=== PATIENT | male | born 1960 | race Caucasian/White ===

== ENCOUNTER 2021-02-12 16:14 | Emergency (ER) | payer MEDICAID, SELFPAY ==
[2021-02-12 16:16] VITALS: BP 113/81; PULSE 109; RESP 18; TEMP 36.9; O2SAT 91; BMI 28.0
--- NOTE | 2021-02-12 16:43 | W.ED.SEIZURE ---
HPI - Seizure General: Chief Complaint: Seizure Stated Complaint: SEIZURES Time Seen by Provider: 02/12/21 16:22 History of Present Illness: HPI Narrative: 52-year-old male presents emergency room with complaint of seizure. He has a known history of seizure disorder is very agitated at the scene we reviewed his medicines he supposed be on valproic acid but has not taken overall he is also using gabapentin is on HIV medication is difficult time giving a slight history still very much postictal. Does not recall any trauma denies use alcohol he has had seizures in the past so this is not entirely new. complaint: seizure Onset (ago): hour(s) Description of Episode: post-event confusion Witnessed: Yes - by Bystander Trauma: No Seizure History: Yes Place: Outdoors Possible Precipitating Event: medication Associated symptoms: Reports confusion; Deny chest pain, chills, cough, diaphoresis, fever(s), anorexia, malaise, rash, short of breath, syncope or weakness Treatments prior to arrival: none Review of Systems Const: Denies: fever(s), chills, malaise or diaphoresis ENMT: Denies: throat pain, ear or mastoid pain, nasal discharge or nasal congestion Card: Denies: chest pain or syncope Resp: Denies: dyspnea, productive cough or non-productive cough GI: Denies: abdominal pain, nausea, vomiting, hematemesis, coffee ground emesis, diarrhea, constipation, bloating, hematochezia or melena : Denies: flank pain, dysuria, urinary frequency or urinary urgency Skin/Breast: Denies: rash or pruritus Neuro: Reports: confusion Physical Exam Const: COMMON NORMALS: no acute distress GENERAL APPEARANCE: cooperative and comfortable HENMT: COMMON NORMALS: normocephalic, atraumatic, hearing grossly normal bilaterally and external ears normal HEAD & SCALP: normocephalic and atraumatic EXTERNAL EAR: Yes external ears normal Eye: COMMON NORMALS: Equal, round and reactive pupils present, EOMs intact bilaterally, conjunctivae normal and no scleral icterus CONJUNCTIVA: Yes conjunctivae normal PUPIL: Yes Equal, round and reactive pupils present Neck/C-Spine: COMMON NORMALS: full ROM, no lymphadenopathy, supple and no JVD Lymph: LYMPHATIC: no lymphadenopathy noted and no lymphedema noted Resp: COMMON NORMALS: normal respiratory effort, No retractions, No use of accessory muscles and clear to auscultation bilaterally AUSCULTATION: clear to auscultation bilaterally Cardio: COMMON NORMALS: no JVD, regular rate, regular rhythm and No murmurs present (Cardio) RATE: regular rate RHYTHM: regular rhythm GI: COMMON NORMALS: Soft to palpation and No hepatosplenomegaly present AUSCULTATION: Yes normoactive bowel sounds PALPATION: Yes Soft to palpation, No Tenderness to palpation present (GI), No Guarding due to palpation present (GI) and Yes No hepatosplenomegaly present Extremity: COMMON NORMALS: normal to inspection, capillary refill normal, no clubbing, cyanosis or edema, no calf tenderness and no pedal edema Skin: COMMON NORMALS: no rashes or lesions noted GENERAL SKIN EXAM: no rashes or lesions noted Course Vital Signs: Vital signs: Vital Signs Temperature 98.4 F 02/12/21 16:16 Pulse Rate 88 02/12/21 18:22 Respiratory Rate 14 02/12/21 18:22 Blood Pressure 100/58 02/12/21 18:22 Pulse Oximetry 93 02/12/21 18:22 MDM - Seizure MDM Narrative: Medical decision making narrative: And postictal on arrival. Were going to go ahead and discharge him given Ativan only initially arrived he is a little bit sedate yet. He prefers to go home. Plan follow-up with Dr. Stark. Increase his valproic acid. Lab Data: Labs: Lab Results 02/12/21 02/12/21 Range/Units 17:18 17:18 WBC 14.3 H (4.0-10.0) 10^3/ uL RBC 4.88 (4.1-5.3) 10^6/u L Hgb 14.7 (11.7-16.6) g/dL Hct 43.5 (42.0-52.0) % MCV 89.1 (80-94) fL MCH 30.1 (28.0-34.0) pg MCHC 33.8 (30.0-36.0) g/dL RDW 12.8 (12.1-15.1) % Plt Count 300 (130-400) 10^3/c mm MPV 11.3 H (7.4-10.4) fL Neut % (Auto) 87.9 % Lymph % (Auto) 5.2 % [place] % (Auto) 6.0 % Eos % (Auto) 0.1 % Baso % (Auto) 0.4 % Neut # (Auto) 12.56 H (1.8-7.7) 10^3/u L Lymph # (Auto) 0.7 L (0.8-4.8) 10^3/u L [place] # (Auto) 0.9 (0.2-0.9) 10^3/u L Eos # (Auto) 0.0 (0.0-0.8) 10^3/u L Baso # (Auto) 0.1 (0.0-0.1) 10^3/u L Nucleated RBC % (a uto) 0 % Nucleated RBCs # 0.0 /100WBC Sodium 134 L (136-145) mmol/L Potassium 4.0 (3.5-5.1) mmol/L Chloride 100 (98-107) mmol/L Carbon Dioxide 23 (22-29) mmol/L Anion Gap 15.0 (5-19) BUN 12 (6-20) mg/dL Creatinine 1.1 (0.7-1.2) mg/dL GFR Calculation 68.8 L (90-130) mL/min Glucose 117 H (65-115) mg/dL Calculated Osmolal ity 279 L (285-295) mOsm/k g Calcium 8.8 (8.5-10.5) mg/dL Magnesium 2.5 H (1.7-2.3) mg/dL Total Bilirubin 0.5 (0.15-1.2) mg/dL AST 19 (0-40) U/L ALT 12 (0-41) U/L Alkaline Phosphata se 74 (40-130) IU/L Total Protein 7.2 (6.6-8.7) g/dL Albumin 3.6 (3.5-5.2) g/dL Globulin 3.6 (1.3-4.6) g/dL Valproic Acid 27.6 L (50-100) ug/mL Discharge Plan Discharge Patient Disposition: Home Clinical Impression: Epileptic seizure Condition: Stable Prescriptions: No Action divalproex 500 mg tablet extended release 24 hr 500 mg PO BID RF: 0 gabapentin 300 mg capsule 900 mg PO TID RF: 0 pravastatin 20 mg tablet 20 mg PO DAILY RF: 0 ProAir HFA 90 mcg/actuation HFA aerosol inhaler 2 puff INHALATION Q6H PRN (Reason: Shortness Of Breath) RF: 0 bupropion HCl 150 mg tablet extended release 24 hr 150 mg PO DAILY RF: 0 duloxetine 60 mg capsule,delayed release(DR/EC) 60 mg PO DAILY RF: 0 Triumeq 600-50-300 mg tablet 1 tab PO DAILY RF: 0 Discharge Orders: Discharge ED (Routine); Ordered 02/12/21 Ordered By: David Schmid Discharge Diet: Usual diet Discharge Activity: Resume usual activity Patient Instructions: Epilepsy (ED) Coding Level of Care Code ED Director [employer] for Rubina Fwd Exam Comprehensive
--- NOTE | 2021-02-12 16:44 | CTR_ITS ---
PROCEDURE INFORMATION: Exam: CT Head Without Contrast Exam date and time: 02/12/2021 4:47 PM Age: 60 years old Clinical indication: Condition or disease; Convulsions or seizures; Additional info: Hivseizure TECHNIQUE: Imaging protocol: Computed tomography of the head without contrast. Radiation optimization: All CT scans at this facility use at least one of these dose optimization techniques: automated exposure control; mA and/or kV adjustment per patient size (includes targeted exams where dose is matched to clinical indication); or iterative reconstruction. COMPARISON: CT head wo con* [id number] 09/29/2014 3:02 AM RADIATION DOSE METRICS: Total DLP (mGy-cm): 1271.62 FINDINGS: Limitations: Study is moderately limited by patient motion. Brain: Normal. No hemorrhage. Unremarkable white matter. No mass effect. Cerebral ventricles: No ventriculomegaly. Paranasal sinuses: Visualized sinuses are unremarkable. No fluid levels. Mastoid air cells: Visualized mastoid air cells are well aerated. Bones/joints: Unremarkable. No acute fracture. Soft tissues: Unremarkable. CT/CT head wo con* [id number] IMPRESSION: Limited exam. No gross acute intracranial finding. Radiation Dose CTDIVOL = (mGy): DLP = 1271.62 (mGy-cm)
[2021-02-12 17:24] LABS: Basophils # 0.1 10^3/uL (0.0-0.1); Basophils % 0.4 %; Eosinophils % 0.1 %; Hematocrit 43.5 % (42.0-52.0); Hemoglobin 14.7 g/dL (11.7-16.6); Lymphocytes # 0.7 10^3/uL (0.8-4.8); Lymphocytes % 5.2 %; Mean Corpuscular HGB Conc 33.8 g/dL (30.0-36.0); Mean Corpuscular Hemoglobin 30.1 pg (28.0-34.0); Mean Corpuscular Volume 89.1 fL (80-94); Mean Platelet Volume 11.3 fL (7.4-10.4); Monocytes # 0.9 10^3/uL (0.2-0.9); Neutrophils # 12.56 10^3/uL (1.8-7.7); Neutrophils % 87.9 %; Nucleated Red Blood Cells % 0 %; Platelet Count 300 10^3/cmm (130-400); Red Blood Count 4.88 10^6/uL (4.1-5.3); Red Cell Distribution Width 12.8 % (12.1-15.1); White Blood Count 14.3 10^3/uL (4.0-10.0)
[2021-02-12] MEDS: sodium chloride 0.9% 1,000 ML 999 ML IV (17:25)
[2021-02-12] MEDS: LORazepam 2 mg/mL INJ 1 mL 1 MG IVP (17:26)
[2021-02-12 17:43] LABS: Alanine Aminotransferase 12 U/L (0-41); Albumin Level 3.6 g/dL (3.5-5.2); Alkaline Phosphatase 74 IU/L (40-130); Aspartate Amino Transferase 19 U/L (0-40); Blood Urea Nitrogen 12 mg/dL (6-20); Calcium 8.8 mg/dL (8.5-10.5); Carbon Dioxide 23 mmol/L (22-29); Chloride 100 mmol/L (98-107); Globulin 3.6 g/dL (1.3-4.6); Glomerular Filtration Rate 68.8 mL/min (90-130); Glucose 117 mg/dL (65-115); Magnesium 2.5 mg/dL (1.7-2.3); Osmolality Calculated 279 mOsm/kg (285-295); Sodium 134 mmol/L (136-145); Total Bilirubin 0.5 mg/dL (0.15-1.2); Total Protein 7.2 g/dL (6.6-8.7)
[2021-02-12 18:22] VITALS: BP 100/58; PULSE 88; RESP 14; O2SAT 93
[2021-02-12 20:30] LABS: Valproic Acid Level 27.6 ug/mL (50-100)
--- NOTE | 2021-02-13 09:35 | DCPLANNER ---
java development manager had message to schedule a follow up appointment for patient with Dr. Stark for seizures. java development manager emailed patients information to Shyanne at Dr. Anderson office. Patients information will be printed and reviewed. Clinic will call patient with appointment information.
--- NOTE | 2021-02-18 07:54 | DCPLANNER ---
Patient has a follow up appointment scheduled for Thursday, March 06, 2021 at 3:30 with Ricco at neurology. Clinic will call patient with appointment information.
--- NOTE | 2021-03-13 07:29 | DCPLANNER ---
Patient had a follow up appointment scheduled for 03.06.[address] Anderson office - appointment is rescheduled for a later date.
== END 2021-02-12 18:23 | disposition home or self-care (01) ==
PROVIDERS: Emergency Provider Family Medicine
DX: G40.909 Epilepsy, unspecified, not intractable, without status epilepticus (principal)
CPT/HCPCS: 70450; 80053; 80164; 83735; 85025; 96361; 96374; 99283; J2060; J7030

== ENCOUNTER 2021-04-16 20:04 | Emergency (ER) | payer MEDICAID, SELFPAY ==
[2021-04-16 20:10] VITALS: BP 112/71; PULSE 105; RESP 24; TEMP 36.4; O2SAT 95; BMI 27.5
--- NOTE | 2021-04-16 20:17 | ED_ITS ---
HPI - Seizure General: Chief Complaint: Seizure Stated Complaint: SEIZURE Time Seen by Provider: 04/16/21 20:09 History of Present Illness: HPI Narrative: Mr. Rodriguez is a 60 year old gentleman with significant past medical history of epilepsy and HIV who presents to the [facility] do too seizure activity appeared reportedly he had two witnessed tonic clonic seizures without trauma today. He does not typically have a aura associated with these events. History is somewhat limited by patient appearing to be still postictal. The frequency of seizures is largely unchanged for him. He denies specific provoking factors. he currently reports moderate to severe intensity generalized fatigue which is common after seizures for him. The onset of these symptoms was acutely after his seizure. He has otherwise been at his baseline health. He reports compliance with his medications. He further reports compliance with his HIV regimin and denies any focal neurologic symptoms, fevers, neck stiffness, Headaches, or confusion outside the postictal. Seizure History: Yes (recent stressors, takes VPA.) Review of Systems General: Reports: 10 or more systems reviewed and unremarkable except in HPI and below Narrative: CONSTITUTIONAL: denies fever, weakness. See HPI EYES - denies pain, denies loss of vision EARS - denies ear issues. NOSE - denies congestion or rhinorrhea. THROAT - denies sore throat or difficulty swallowing. CARDIOVASCULAR - denies chest pain and palpitations RESPIRATORY - denies shortness of breath and cough GASTROINTESTINAL - denies abdominal pain, no nausea vomiting, no changes in bowel habits GENITOURINARY - denies dysuria or urinary frequency MUSCULOSKELETAL- denies deformity or pain SKIN - denies rashes or new changed skin lesions NEUROLOGIC - denies focal weakness or sensory changes. See HPI HEMATOLOGIC/LYMPHATIC - denies easy bruising or lymphadenopathy. PFS ED PFSH: Medical History Intractable seizure disorder Physical Exam Narrative: EXAM NARRATIVE: GENERAL/CONSTITUTIONAL - well-appearing. No acute distress. Mildly confused. Hard of hearing. Eyes - PERRL, no conjunctival injection ENMT - Atraumatic external nose and ears. Moist mucous membranes NECK - supple. trachea midline CARDIOVASCULAR - regular rate and rhythm. Peripheral pulses 2+ and equal RESPIRATORY -clear to auscultation bilaterally. No retractions or accessory muscle use. ABDOMEN/GI - Nontender/Nondistended. No tenderness to percussion or evidence of peritonitis MSK - Extremities without obvious deformity or tenderness to palpation SKIN - Warm, Dry NEURO - alert but mildly postictal. strength and sensation intact. Moves all extremities equally. Cranial nerves 2-12 intact. PSYCH - Appropriate mood and affect Course ED course: - Monitor, IV access, and vital signs obtained. - The patient was seen and evaluated me at bedside. - Initial evaluation was notable for postictal , no acute distress. No focal neurologic deficits appreciated. - Labs and imaging were obtained and reviewed. - Labs notable for no cute image logic or metabolic abnormality to explain patient seizure activity. - Imaging notable for No acute finding - given patient subtherapeutic valproic acid level I discussed the case with Dr Stark, neurologist communication electronic technician, who recommended a 500 milligram load of Depakote. - Upon reassessment patient was frustrated with wait and declined IV load. His postical period was resolved and he was competent to make decisions regarding his healthcare. I discussed risks and seizure precautions which he is familiar with. - The most likely cause for the patient's symptoms is seizure disorder. - The results of ED evaluation were discussed with the patient including the need for follow up with PCP. Return precautions, follow up plan were discussed with the patient. The patient verbalized understanding and felt safe for discharge. - Upon serial reexamation the patient's condition was improved. They were discharged without incident or clinical deterioration. Vital Signs: Vital signs: Vital Signs Temperature 97.5 F L 04/16/21 20:10 Pulse Rate 92 04/16/21 23:49 Respiratory Rate 18 04/16/21 23:49 Blood Pressure 128/84 04/16/21 23:49 Pulse Oximetry 95 04/16/21 23:49 MDM - Seizure Medical Records: Attestation: I reviewed the patient's medical records. Lab Data: Attestation: I reviewed the patient's lab results. Labs: Lab Results 04/16/21 04/16/21 04/16/21 Range/Units 20:43 21:10 21:10 WBC 8.4 (4.0-10.0) 10^3/ uL RBC 4.94 (4.1-5.3) 10^6/u L Hgb 15.1 (11.7-16.6) g/dL Hct 46.7 (42.0-52.0) % MCV 94.5 H (80-94) fL MCH 30.6 (28.0-34.0) pg MCHC 32.3 (30.0-36.0) g/dL RDW 15.3 H (12.1-15.1) % Plt Count 255 (130-400) 10^3/c mm MPV 11.8 H (7.4-10.4) fL Neut % (Auto) 75.6 % Lymph % (Auto) 13.7 % [place] % (Auto) 9.0 % Eos % (Auto) 0.8 % Baso % (Auto) 0.5 % Neut # (Auto) 6.35 (1.8-7.7) 10^3/u L Lymph # (Auto) 1.2 (0.8-4.8) 10^3/u L [place] # (Auto) 0.8 (0.2-0.9) 10^3/u L Eos # (Auto) 0.1 (0.0-0.8) 10^3/u L Baso # (Auto) 0.0 (0.0-0.1) 10^3/u L Nucleated RBC % (a uto) 0 % Nucleated RBCs # 0.0 /100WBC Sodium 139 (136-145) mmol/L Potassium 4.9 (3.5-5.1) mmol/L Chloride 103 (98-107) mmol/L Carbon Dioxide 26 (22-29) mmol/L Anion Gap 14.9 (5-19) BUN 13 (6-20) mg/dL Creatinine 1.0 (0.7-1.2) mg/dL GFR Calculation 76.7 L (90-130) mL/min Glucose 95 (65-115) mg/dL POC Glucose 97 (70-110) mg/dL Calculated Osmolal ity 288 (285-295) mOsm/k g Calcium 9.1 (8.5-10.5) mg/dL TSH 2.16 (0.27-4.20) uIU/ mL Valproic Acid 29.9 L (50-100) ug/mL Imaging Data^: CXR: Attestation: I personally reviewed and interpreted this imaging study as follows: My impression: No evidence of aspiration Radiologist's impression: No acute findings. Discharge Plan Discharge Patient Disposition: Home Clinical Impression: Intractable seizure disorder Condition: Fair Prescriptions: No Action divalproex 500 mg tablet extended release 24 hr 500 mg PO BID RF: 0 gabapentin 300 mg capsule 900 mg PO TID RF: 0 pravastatin 20 mg tablet 20 mg PO DAILY RF: 0 albuterol sulfate [ProAir HFA] 90 mcg/actuation HFA aerosol inhaler 2 puff INHALATION Q6H PRN (Reason: Shortness Of Breath) RF: 0 bupropion HCl 150 mg tablet extended release 24 hr 150 mg PO DAILY RF: 0 duloxetine 60 mg capsule,delayed release(DR/EC) 60 mg PO DAILY RF: 0 Triumeq 600-50-300 mg tablet 1 tab PO DAILY RF: 0 Discharge Orders: Discharge ED (Routine); Ordered 04/16/21 Ordered By: Glen Carrera Discharge Diet: Usual diet Discharge Activity: Resume usual activity Patient Instructions: Epilepsy (ED) Activity Restrictions/Additional Instructions: Thank you for visiting the emergency department. You were seen and evaluated for seizure. The exact cause of your symptoms is somewhat unclear though may be related to underlying seizure disorder. Please follow-up with your neurologist. Please ensure that you are taking your medications as prescribed. We offered you a IV dose of Depakote as your levels were low which you declined. Please follow all seizure precautions as discussed. No driving, swimming, cooking over open flames, operating heavy machinery, or anything else that would keep you at risk if you were to have another seizure. Return the emergency department for any reason that you feel needs emergency department evaluation. Coding Level of Care Code ED Culinary Artist for Rubina Saucedo
--- NOTE | 2021-04-16 20:35 | CTR_ITS ---
PROCEDURE INFORMATION: Exam: CT Head Without Contrast Exam date and time: 04/16/2021 8:35 PM Age: 60 years old Clinical indication: Condition or disease; Convulsions or seizures; Additional info: Seizure, AMS TECHNIQUE: Imaging protocol: Computed tomography of the head without contrast. Radiation optimization: All CT scans at this facility use at least one of these dose optimization techniques: automated exposure control; mA and/or kV adjustment per patient size (includes targeted exams where dose is matched to clinical indication); or iterative reconstruction. COMPARISON: CT head wo con* [id number] 02/12/2021 4:49 PM RADIATION DOSE METRICS: Total DLP (mGy-cm): 717.94 FINDINGS: Brain: Normal. No hemorrhage. Unremarkable white matter. No mass effect. Cerebral ventricles: No ventriculomegaly. Paranasal sinuses: Visualized sinuses are unremarkable. No fluid levels. Mastoid air cells: Visualized mastoid air cells are well aerated. Bones/joints: Unremarkable. No acute fracture. Soft tissues: Unremarkable. CT/CT head wo con* [id number] IMPRESSION: No acute intracranial abnormality. Radiation Dose CTDIVOL = (mGy): DLP = 717.94 (mGy-cm)
--- NOTE | 2021-04-16 20:42 | XRR_ITS ---
PROCEDURE INFORMATION: Exam: XR Chest Exam date and time: 04/16/2021 8:42 PM Age: 60 years old Clinical indication: Cough and tachypnea; Additional info: AMS, tachypnea TECHNIQUE: Imaging protocol: XR of the chest. Views: 1 view. COMPARISON: [place] Chest 1 [place] [id number] 12/01/2016 12:56 PM FINDINGS: Lungs: Unremarkable. No consolidation. Pleural spaces: Unremarkable. No pleural effusion. No pneumothorax. Heart/Mediastinum: Unremarkable. No cardiomegaly. Bones/joints: Unremarkable. XR/XR chest 1V portable [id number] IMPRESSION: No acute findings.
[2021-04-16 20:43] VITALS: BP 137/87; PULSE 88; RESP 18; O2SAT 99
[2021-04-16 20:50] LABS: Glucose Point of Care 97 mg/dL (70-110)
[2021-04-16] MEDS: sodium chloride 0.9% 500 ML IV (20:55)
[2021-04-16 21:16] LABS: Basophils % 0.5 %; Eosinophils # 0.1 10^3/uL (0.0-0.8); Eosinophils % 0.8 %; Hematocrit 46.7 % (42.0-52.0); Hemoglobin 15.1 g/dL (11.7-16.6); Lymphocytes # 1.2 10^3/uL (0.8-4.8); Lymphocytes % 13.7 %; Mean Corpuscular HGB Conc 32.3 g/dL (30.0-36.0); Mean Corpuscular Hemoglobin 30.6 pg (28.0-34.0); Mean Corpuscular Volume 94.5 fL (80-94); Mean Platelet Volume 11.8 fL (7.4-10.4); Monocytes # 0.8 10^3/uL (0.2-0.9); Neutrophils # 6.35 10^3/uL (1.8-7.7); Neutrophils % 75.6 %; Nucleated Red Blood Cells % 0 %; Platelet Count 255 10^3/cmm (130-400); Red Blood Count 4.94 10^6/uL (4.1-5.3); Red Cell Distribution Width 15.3 % (12.1-15.1); White Blood Count 8.4 10^3/uL (4.0-10.0)
[2021-04-16 22:00] LABS: Anion Gap 14.9 (5-19); Blood Urea Nitrogen 13 mg/dL (6-20); Calcium 9.1 mg/dL (8.5-10.5); Carbon Dioxide 26 mmol/L (22-29); Chloride 103 mmol/L (98-107); Glomerular Filtration Rate 76.7 mL/min (90-130); Glucose 95 mg/dL (65-115); Osmolality Calculated 288 mOsm/kg (285-295); Potassium 4.9 mmol/L (3.5-5.1); Sodium 139 mmol/L (136-145); Thyroid Stimulating Hormone 2.16 uIU/mL (0.27-4.20); Valproic Acid Level 29.9 ug/mL (50-100)
[2021-04-16 22:15] VITALS: BP 139/88; PULSE 90; RESP 16; O2SAT 98
[2021-04-16 22:42] VITALS: BP 144/95; PULSE 89; RESP 18; O2SAT 97
[2021-04-16] MEDS: valproic acid inj 500 MG in sodium chloride 0.9% 50 ML 55 MG IV (22:57)
--- NOTE | 2021-04-16 23:11 | PC.NURSE ---
patient removed his patient monitor was at the edge of the bed and took his pulse ox off as well. he states he just wants to go home. I asked that the patient allow me to put monitoring back in place and to complete his IV medication reluctantly he agreed to at this time. He has removed his monitoring 3 other times while here in ER.
--- NOTE | 2021-04-16 23:48 | PC.NURSE ---
patient with [employer] 15. patient to waiting room to wait for ride
[2021-04-16 23:49] VITALS: BP 128/84; PULSE 92; RESP 18; O2SAT 95
== END 2021-04-16 23:51 | disposition home or self-care (01) ==
PROVIDERS: Emergency Provider Emergency Medicine
DX: G40.919 Epilepsy, unspecified, intractable, without status epilepticus (principal); Z21 Asymptomatic human immunodeficiency virus [HIV] infection status
CPT/HCPCS: 36416; 70450; 71045; 80048; 80164; 82962; 84443; 85025; 96365; 99284; J7040